=== PATIENT | male | born 1975 | race Caucasian/White ===

== ENCOUNTER → 2021-01-31 09:47 | Outpatient (REF) | payer BC, SELFPAY ==
--- NOTE | 2021-01-31 09:30 | CA_ITS ---
Acquisition Time: 2021-01-31 10:29:09 Total Exercise Time: 00:06:55 Test Indications: SOB ON EXERTION Medications: Protocol: MONICA Max HR: 134 BPM 77% of Pred: 173 BPM Max BP: 196/098 mmHG Max Work Load: 8.3 METS Exercise stress test with exercise 6 min 55 sec of Monica protocol, with moderate shortness of breath and request to stop exercise, no chest discomfort, with isolated PVC, then increased frequency of PVCs near peak exercise with multifocal ventricular cuplets, with hypertensive response to exercise with max BP 196/ 98, with nondiagnostic EKG changes for ischemia due to suboptimal heart rate, achieving 77% MPHR. In recovery his shortness of breath resolved and BP returned to baseline. Test reviewed with Dr Batres. Call placed to Dr Matias office. Report given with recommendation for pharmacological nuclear stress test to further evaluation for ischemia. Referred By: Joss Lester Overread By: BG ALCANTARA
== END ==
LOC: HO.CARD 09:47
PROVIDERS: Visit Provider Family Medicine
DX: R06.09 Other forms of dyspnea (principal)
CPT/HCPCS: 93017

== ENCOUNTER → 2021-03-10 08:11 | Outpatient (REF) | payer BC, SELFPAY ==
--- NOTE | ~2021-03-10 | NM_ITS ---
Myocardial perfusion study Indication: Abnormal stress test evaluate for myocardial ischemia Technique: The patient was brought in for a Lexiscan perfusion study on 03/10/2021. Patient performed low-level exercise and was injected 0.4 mg of Lexiscan intravenously. Within a minute of injection, 40 mCi of sestamibi was given intravenously. Images were obtained using the SPECT gamma camera interlaced with the gating device. Images were obtained in supine position. Resting perfusion study was performed on 03/11/2021. Patient was administered 40 mCi of sestamibi intravenously at rest. Images were then obtained in supine position. Images obtained with and without CT attenuation. Total DLP 116 mGy-cm. Images were processed with the software and compared side to side in short axis, horizontal long axis and vertical long axis views. Findings: The stress perfusion study showed nonattenuated images show mildly to moderately reduced uptake in the septum, inferior and apical wall of the LV myocardium. Attenuated corrected images show mildly reduced uptake in the septum and apex of the LV myocardium The gated study shows low normal LV systolic function with calculated LVEF of 54%. LV cavity is normal in size. The gated study shows normal systolic wall thickening and contraction of segments. Resting study shows no change in perfusion pattern compared to stress perfusion study. Gating at rest reveals normal cyst colic wall motion with ejection fraction at 52%. The findings are consistent with no clear reversible defect suggestive of ischemia. Fixed defect most likely due to soft tissue attenuation. NM/NM bang perf SPECT rest & str Impression: 1. Myocardial perfusion imaging study shows likely normal myocardial perfusion 2. Gated LVEF is 54% 3. Transient ischemic dilatation not present EKG is nondiagnostic for ischemia
--- NOTE | 2021-03-10 08:00 | CA_ITS ---
Acquisition Time: 2021-03-10 09:04:26 Total Exercise Time: 00:02:00 Test Indications: cp, abn ett Medications: see chart Protocol: LEXISCAN Max HR: 095 BPM 54% of Pred: 173 BPM Max BP: 130/082 mmHG Max Work Load: 1.6 METS Pharmacological stress test with Lexiscan injection, while walking on treadmill without anginal symptoms, without arrythmia, with normotensive response to injection, with nondiagnostic EKG for ischemia. In recovery he reported feeling shaky and was treated with Aminophylline 75mg IVP to reverse Lexiscan with resolution of symptom. Nuclear images pending. Test reviewed with Dr Batres. Referred By: Joss Lester Overread By: BG ALCANTARA
== END ==
LOC: HO.CARD 08:11
PROVIDERS: Visit Provider Family Medicine
DX: R94.39 Abnormal result of other cardiovascular function study (principal)
CPT/HCPCS: 78452; 93017; A9500; J0280; J2785

== ENCOUNTER 2021-08-14 13:22 | Emergency (ER) | payer BC, SELFPAY ==
--- NOTE | ~2021-08-14 | CT_ITS ---
EXAMINATION: CT ANGIOGRAM OF THE CHEST WITH AND WITHOUT CONTRAST (CT PULMONARY ANGIOGRAM FOR PE) CLINICAL INFORMATION: Reason for Exam sob, hypoxia COMPARISON: None TECHNIQUE: Prior to contrast administration, noncontrast localization images were obtained. Subsequently, multidetector volumetric imaging was performed from the thoracic inlet to below the diaphragms following the administration of 65 mL Omnipaque 350 intravenous contrast. No contrast reaction reported Sagittal, coronal, and MIP oblique sagittal reformatted images were obtained on the CT workstation, uploaded to PACS, and reviewed. This CT examination was performed using dose optimization techniques as appropriate, variously including the following: *Automated exposure control *Adjustment of mA and/or kV according to patient size (this includes techniques or standardized protocols for targeted exams where dose is matched to indication/reason for exam; i.e. extremities or head) *Use of iterative reconstruction technique Total exam dose-length product 464 mGy-cm FINDINGS: QUALITY OF STUDY/CONTRAST BOLUS: Satisfactory. PULMONARY ARTERIES: No central or segmental pulmonary emboli. THORACIC AORTA: No aneurysm or dissection. LUNG: There is focal groundglass attenuation at the medial aspect of the right lung apex which extends from the pleural surface and likely corresponds to pleural parenchymal scarring. There is an angular, peripheral 3 mm nodule in the right middle lobe anterolaterally on image 290/585 of series 7. A few additional 2 mm nodules are noted. No consolidation. Central airways are clear. There is a small bulla in the medial aspect of the left lung base PLEURA: No pleural effusion or pneumothorax. MEDIASTINUM: There is an enlarged right hilar lymph node smaller subcentimeter hilar lymph nodes are present in the right suprahilar and infrahilar regions. No definite left-sided hilar adenopathy. There is a 1.2 cm precarinal lymph node which is borderline enlarged. No evidence of septal bowing or right heart strain. CHEST WALL/AXILLA: No axillary or internal mammary lymphadenopathy. OSSEOUS STRUCTURES: No acute or suspicious osseous abnormality. UPPER ABDOMEN: Unremarkable. No reflux of contrast into the hepatic veins to suggest elevated right heart pressures. CT/CT angio chest PE protocol IMPRESSION: 1. Subtle groundglass attenuation in the right lung apex is favored to correspond to pleural parenchymal scarring. No definite pulmonary consolidation. An early infectious process is less likely in the absence of additional foci . 2. Borderline enlarged mediastinal and right hilar lymph nodes. 3. A 3 mm nodule in the right middle lobe. According to the UPDATED 2017 Fleischner Society recommendations, the advised follow-up imaging for solid nodules < 6 mm is: LOW RISK PATIENT: No routine follow-up. HIGH RISK PATIENT: Optional CT at 12 months. VTE: negative
--- NOTE | ~2021-08-14 | XR_ITS ---
EXAMINATION: XR CHEST CLINICAL INFORMATION: Question Covid. Abnormal chest x-ray. Urgent care COMPARISON: August 31, 2018 TECHNIQUE: 2 views of the chest were obtained. FINDINGS: No significant abnormality is noted involving the heart, lungs, mediastinum, bony thorax or soft tissues. XR/XR chest 2V IMPRESSION: No acute disease.
[2021-08-14 13:30] VITALS: BP 154/69; PULSE 75; RESP 20; TEMP 37.4; O2SAT 92; BMI 32.1
--- NOTE | 2021-08-14 18:21 | ED.URI ---
HPI - URI/Sore Throat General Chief Complaint: Upper Respiratory Symptoms Stated Complaint: low o2 Source: patient Mode of arrival: ambulatory Limitations: no limitations History of Present Illness HPI Narrative: 45-year-old male presents from Urgent Care for hypoxia at 88% on room air with positive COVID exposures. Also reports fatigue, shortness of breath, and cough. MD elicited complaint: cough and nasal congestion Onset (ago): day(s) Consistency: constant Severity: moderate Description of mucous: clear Able to tolerate fluids by mouth: Yes Exacerbating factors: exertion Relieving factors: nothing Context: sick contacts Associated symptoms: fever, chills, myalgias, headache, nasal congestion, sore throat, cough and shortness of breath Treatments prior to arrival: none Related Data Previous Rx's Medication Instructions Recorded albuterol sulfate 90 mcg/actuation 2 inh INHALATION Q4-6H PRN #1 ea 08/14/21 breath activated powder inhaler dexamethasone 6 mg tablet 6 mg PO DAILY #5 tab 08/14/21 Allergies Allergy/AdvReac Type Severity Reaction Status Date / Time No Known Allergies Allergy Unverified 05/02/20 15:05 [No Known Allergies*] Review of Systems Review of Systems: Constitutional: positive Fever, positive Chills, positive fatigue, positive Malaise ENT/Mouth: positive sore throat, positive runny nose Eyes: No Discharge Cardiovascular: No Chest Pain, No SOB Respiratory: Positive Cough, No Sputum, No Wheezing, No Smoke Exposure, No Dyspnea Gastrointestinal: No Nausea, No Vomiting, No Diarrhea Genitourinary: no irregular bleeding, No Dysuria, No Urinary Frequency, No Hematuria, No Urinary Incontinence, No Urgency, No Flank Pain, Musculoskeletal: positive Myalgia Skin: No rash Neuro: Positive Headache Yes all other systems are reviewed and are negative [facility] Past Medical History Attestation statement: The following information was validated with the patient. Source: old records reviewed Medical History ADHD Depression Sleep apnea Social History Social History Alcohol intake: current Alcohol intake frequency: holidays/special occasions only Patient Tobacco Use Status: Never used Tobacco Use of substances other than those prescribed or required for medical reasons: No Advance Directives: No Advance Directives Information Provided: No Physical Exam Vital Signs: Vital Signs: Last Vital Signs Temp 99.4 F 08/14/21 13:30 Pulse 96 08/14/21 21:00 Resp 16 08/14/21 21:00 BP 154/69 H 08/14/21 13:30 Pulse Ox 95 08/14/21 21:00 Oxygen Flow Rate 2 08/14/21 21:00 BMI result Body Mass Index 32.1 Appearance: Alert. Oriented X3. No acute distress. Eyes: Pupils equal, round and reactive to light. EOMI. Sclera nonicteric. ENT: Pharynx normal. Nasal congestion. Neck: Normal inspection. Neck supple. No nuchal rigidity. CVS: Normal heart rate and rhythm. Pulses normal. Respiratory: No respiratory distress. Inspiratory and expiratory wheezing throughout. No chest wall tenderness to palpation. Abdomen: Soft and nontender. Skin: Skin warm and dry. Normal skin color. Normal skin turgor. Extremities: No lower extremity edema. Gait well-balanced well coordinated. Neuro: No motor deficit. No sensory deficit. Cranial nerves 2-12 intact. Course Course Course Narrative: 45-year-old male presents with hypoxia, nasal congestion, fatigue and shortness of breath. Presents from Urgent Care for O2 sat 88% on room air. Family members are positive for COVID-19, his COVID-19 rapid test was negative. Will order lab values, ambulatory pulse ox. CT scan chest. 7:24 p.m. 20 gauge ID to the right AC started by this SLIDE FASTENER REPAIRER. Labs obtained by this SLIDE FASTENER REPAIRER. CT PE study is negative. Discussion with patient regarding plan to discharge home as patient does not want to be admitted to the hospital. While his O2 sat was reported to be 88 89% while at Urgent Care, his oxygen saturation has stayed at 92% while in the emergency department. He does understand that he must take precautions, and that if this shortness of breath increases that he must return to the emergency department. I provided dexamethasone and albuterol inhaler at this time. No antibiotics as he does not have any focal infiltrates consistent with a possible bacterial pneumonia at this time. Patient does understand and agrees with this plan. MDM - URI/Sore Throat MDM Narrative Medical decision making narrative: PE Differential Diagnosis Differential diagnosis: Likely upper respiratory infection, viral infection, bronchitis, influenza and pharyngitis Medical Records Attestation: I reviewed the patient's medical records. Lab Data Attestation: I reviewed the patient's lab results. Result diagrams: 08/14/21 19:22 08/14/21 20:14 Labs: Lab Results 08/14/21 08/14/21 08/14/21 Range/Units 19:00 19:22 19:22 WBC 5.8 (4.8-10.8) X10*3/uL RBC 4.78 (4.60-5.80) X10*6/uL Hgb 13.8 L (14.0-18.0) g/dl Hct 42.1 (42.0-52.0) % MCV 88.1 (80.0-98.0) fL MCH 28.9 (27.0-33.0) pg MCHC 32.8 (31.0-36.0) g/dl RDW 12.5 (11.0-16.0) % Plt Count 182 (160-400) X10*3/uL MPV 9.4 (9.4-12.4) fL Immature Gran % (Auto) 0.3 (0.0-0.4) % Neut % (Auto) 72.9 (45-73) % Lymph % (Auto) 6.6 L (20-40) % [place] % (Auto) 10.5 (2-11) % Eos % (Auto) 9.0 H (0-4) % Baso % (Auto) 0.7 (0-2) % Lymph # (Auto) 0.4 L (1.2-4.9) X10*3/uL [place] # (Auto) 0.6 (0.1-1.2) X10*3/uL Eos # (Auto) 0.5 H (0.0-0.4) X10*3/uL Baso # (Auto) 0.0 (0.0-0.2) X10*3/uL Abs Immat Gran (auto) 0.02 (0.00-0.03) X10*3/uL Absolute Neuts (auto) 4.2 (2.0-8.3) x10*3/uL Absolute Nucleated RBC 0.000 (0.0-0.012) X10*3/uL Nucleated RBC % (auto) 0.0 (0.0-0.2) /100WBC Sodium (135-145) mmol/L Potassium (3.3-5.1) mmol/L Chloride (96-108) mmol/L Carbon Dioxide (22-29) mmol/L Anion Gap (12-20) BUN (9-16) mg/dL Creatinine (0.5-1.4) mg/dL Estim Creat Clear Calc Estimated GFR Random Glucose (60-115) mg/dL Calcium (8.4-10.2) mg/dL Troponin I High Sens < 3.5 (<3.5-35.0) ng/L Influenza Type A (PCR) NEGATIVE (Negative) Influenza Type B (PCR) NEGATIVE (Negative) RSV RNA Qual (PCR) NEGATIVE (Negative) SARS-CoV-2 RNA (RT-PCR) POSITIVE A (Negative) 08/14/21 Range/Units 20:14 WBC (4.8-10.8) X10*3/uL RBC (4.60-5.80) X10*6/uL Hgb (14.0-18.0) g/dl Hct (42.0-52.0) % MCV (80.0-98.0) fL MCH (27.0-33.0) pg MCHC (31.0-36.0) g/dl RDW (11.0-16.0) % Plt Count (160-400) X10*3/uL MPV (9.4-12.4) fL Immature Gran % (Auto) (0.0-0.4) % Neut % (Auto) (45-73) % Lymph % (Auto) (20-40) % [place] % (Auto) (2-11) % Eos % (Auto) (0-4) % Baso % (Auto) (0-2) % Lymph # (Auto) (1.2-4.9) X10*3/uL [place] # (Auto) (0.1-1.2) X10*3/uL Eos # (Auto) (0.0-0.4) X10*3/uL Baso # (Auto) (0.0-0.2) X10*3/uL Abs Immat Gran (auto) (0.00-0.03) X10*3/uL Absolute Neuts (auto) (2.0-8.3) x10*3/uL Absolute Nucleated RBC (0.0-0.012) X10*3/uL Nucleated RBC % (auto) (0.0-0.2) /100WBC Sodium 135 (135-145) mmol/L Potassium 5.0 (3.3-5.1) mmol/L Chloride 99 (96-108) mmol/L Carbon Dioxide 29 (22-29) mmol/L Anion Gap 12 (12-20) BUN 12 (9-16) mg/dL Creatinine 0.69 (0.5-1.4) mg/dL Estim Creat Clear Calc 177.2 Estimated GFR > 60 Random Glucose 94 (60-115) mg/dL Calcium 9.0 (8.4-10.2) mg/dL Troponin I High Sens (<3.5-35.0) ng/L Influenza Type A (PCR) (Negative) Influenza Type B (PCR) (Negative) RSV RNA Qual (PCR) (Negative) SARS-CoV-2 RNA (RT-PCR) (Negative) Imaging Data Chest x-ray: Attestation: I personally reviewed and interpreted this imaging study as follows: Radiologist's impression: EXAMINATION: XR CHEST CLINICAL INFORMATION: Question Covid. Abnormal chest x-ray. Urgent care COMPARISON: August 31, 2018 TECHNIQUE: 2 views of the chest were obtained. FINDINGS: No significant abnormality is noted involving the heart, lungs, mediastinum, bony thorax or soft tissues. XR/XR chest 2V IMPRESSION: No acute disease. CT PE study: Attestation: I personally reviewed and interpreted this imaging study as follows: Radiologist's impression: EXAMINATION: CT ANGIOGRAM OF THE CHEST WITH AND WITHOUT CONTRAST (CT PULMONARY ANGIOGRAM FOR PE) CLINICAL INFORMATION: Reason for Exam sob, hypoxia COMPARISON: None? TECHNIQUE: Prior to contrast administration, noncontrast localization images were obtained. ? Subsequently, multidetector volumetric imaging was performed from the thoracic inlet to below the diaphragms following the administration of 65 mL Omnipaque 350 intravenous contrast. No contrast reaction reported Sagittal, coronal, and MIP oblique sagittal reformatted images were obtained on the CT workstation, uploaded to PACS, and reviewed. This CT examination was performed using dose optimization techniques as appropriate, variously including the following: *Automated exposure control *Adjustment of mA and/or kV according to patient size (this includes techniques or standardized protocols for targeted exams where dose is matched to indication/reason for exam; i.e. extremities or head) *Use of iterative reconstruction technique Total exam dose-length product 464 mGy-cm FINDINGS: QUALITY OF STUDY/CONTRAST BOLUS: Satisfactory. PULMONARY ARTERIES: No central or segmental pulmonary emboli.? THORACIC AORTA: No aneurysm or dissection. LUNG: There is focal groundglass attenuation at the medial aspect of the right lung apex which extends from the pleural surface and likely corresponds to pleural parenchymal scarring. There is an angular, peripheral 3 mm nodule in the right middle lobe anterolaterally on image 290/585 of series 7. A few additional 2 mm nodules are noted. No consolidation. Central airways are clear. There is a small bulla in the medial aspect of the left lung base PLEURA: No pleural effusion or pneumothorax. MEDIASTINUM: There is an enlarged right hilar lymph node smaller subcentimeter hilar lymph nodes are present in the right suprahilar and infrahilar regions. No definite left-sided hilar adenopathy. There is a 1.2 cm precarinal lymph node which is borderline enlarged.? No evidence of septal bowing or right heart strain. CHEST WALL/AXILLA: No axillary or internal mammary lymphadenopathy. OSSEOUS STRUCTURES: No acute or suspicious osseous abnormality.? UPPER ABDOMEN: Unremarkable.? No reflux of contrast into the hepatic veins to suggest elevated right heart pressures. CT/CT angio chest PE protocol IMPRESSION: 1. Subtle groundglass attenuation in the right lung apex is favored to correspond to pleural parenchymal scarring. No definite pulmonary consolidation. An early infectious process is less likely in the absence of additional foci . 2. Borderline enlarged mediastinal and right hilar lymph nodes. 3. A 3 mm nodule in the right middle lobe. According to the UPDATED 2017 Fleischner Society recommendations, the advised follow-up imaging for solid nodules < 6 mm is: ?? LOW RISK PATIENT: No routine follow-up. ?? HIGH RISK PATIENT: Optional CT at 12 months. ? ECG Data Attestation: I personally reviewed and interpreted this ECG as follows: ECG interpretation date: 08/14/21 ECG interpretation time: 19:10 Interpretation: Vent. Rate : 070 BPM ? ? Atrial Rate : 070 BPM ?? P-R Int : 148 ms? QRS Dur : 078 ms ? ? QT Int : 388 ms ? ? ? P-R-T Axes : 020 051 059 degrees ?? QTc Int : 419 ms ? Normal sinus rhythm Septal infarct (cited on or before 14-AUG-2021) Abnormal ECG When compared with ECG of 31-AUG-2018 15:22, No significant change was found Discharge Plan Discharge Clinical Impression: COVID-19 Patient Disposition: Home, Self-Care Instructions: Covid-19 Viral Syndrome and Novel Coronavirus (ED) Hey/Ath, COVID-19 (Coronavirus Disease 2019) (ED) Additional Instructions: You were evaluated for upper respiratory symptoms. You tested positive for COVID-19. I discussed this plan in detail with you, while you were at the urgent care your oxygenation saturation was 89%. During or stay in the emergency department your oxygenation saturation was 92% and above. Please use dexamethasone 6 mg daily for the next 5 days. Use albuterol inhaler 2 puffs every 4-6 hours as needed for shortness of breath. CT scan PE study was negative for blood clots, does not show any pockets of fluid consistent with COVID pneumonia. This time we will not be giving you antibiotics as you have neither viral nor bacterial pneumonia. Please follow-up with primary care physician. Symptoms worsen please return to the emergency department. Alternate Tylenol 650 mg every 6 hours and Motrin 600 mg every 6 hours as needed for pain, muscle aches and fever control. Thank you for choosing this emergency department for evaluation. Please follow-up with primary care physician as needed. Return to the emergency department for any new, concerning, or worsening symptoms. Prescriptions: New albuterol sulfate 90 mcg/actuation aerosol powdr breath activated 2 inh inhalation Q4-6H PRN (Reason: shortness of breath or wheezing) Qty: 1 RF: 0 dexamethasone 6 mg tablet 6 mg PO DAILY Qty: 5 RF: 0 Stand Alone Forms: Work/School Release Interventions: ED Discharge Assessment Last Done: 08/14/21 22:57 Discharge Date/Time: 08/14/21 23:06
--- NOTE | 2021-08-14 18:28 | ECG_ITS ---
Test Reason : UPPER RESP Blood Pressure : / mmHG Vent. Rate : 070 BPM Atrial Rate : 070 BPM P-R Int : 148 ms QRS Dur : 078 ms QT Int : 388 ms P-R-T Axes : 020 051 059 degrees QTc Int : 419 ms Normal sinus rhythm Septal infarct (cited on or before 14-AUG-2021) Abnormal ECG When compared with ECG of 31-AUG-2018 15:22, No significant change was found Referred By: Michelle Lima Electronically Signed By:Justin Benavides
[2021-08-14 19:25] LABS: MANUAL DIFF FLAG NO
[2021-08-14 19:26] LABS: Basophils Percent Auto 0.7 % (0-2); Eosinophils Absolute Auto 0.5 X10*3/uL (0.0-0.4); Hematocrit 42.1 % (42.0-52.0); Hemoglobin 13.8 g/dl (14.0-18.0); Imm Gran Abs Auto 0.02 X10*3/uL (0.00-0.03); Imm Gran Pct Auto 0.3 % (0.0-0.4); Lymphocytes Absolute Auto 0.4 X10*3/uL (1.2-4.9); Lymphocytes Percent Auto 6.6 % (20-40); Mean Corpuscular HGB Conc 32.8 g/dl (31.0-36.0); Mean Corpuscular Hemoglobin 28.9 pg (27.0-33.0); Mean Corpuscular Volume 88.1 fL (80.0-98.0); Mean Platelet Volume 9.4 fL (9.4-12.4); Monocytes Absolute Auto 0.6 X10*3/uL (0.1-1.2); Monocytes Percent Auto 10.5 % (2-11); Neutrophils Absolute Auto 4.2 x10*3/uL (2.0-8.3); Neutrophils Percent Auto 72.9 % (45-73); Platelet Count 182 X10*3/uL (160-400); Red Blood Count 4.78 X10*6/uL (4.60-5.80); Red Cell Distribution Width 12.5 % (11.0-16.0); White Blood Count 5.8 X10*3/uL (4.8-10.8)
[2021-08-14 19:49] LABS: Troponin-I High Sensitivity < 3.5 ng/L (<3.5-35.0)
[2021-08-14 20:44] LABS: Anion Gap 12 (12-20); Blood Urea Nitrogen 12 mg/dL (9-16); Carbon Dioxide 29 mmol/L (22-29); Chloride 99 mmol/L (96-108); Creatinine Clr Calc Pharmacy 177.2; Estimated Glomerular Filt Rate > 60; Glucose Random 94 mg/dL (60-115); Sodium 135 mmol/L (135-145)
[2021-08-14 21:00] VITALS: PULSE 96; RESP 16; O2SAT 95
[2021-08-14] MEDS: iohexoL 350 MG/ML 100 ML INFUS..BTL 65 ML IV (21:13)
[2021-08-14 22:11] LABS: Influenza A PCR NEGATIVE (Negative); Influenza B PCR NEGATIVE (Negative); Resp Syncy Virus RNA Qual PCR NEGATIVE (Negative); SARS COV2 PCR INHOUSE POSITIVE (Negative)
== END 2021-08-14 23:06 | disposition home or self-care (01) ==
PROVIDERS: Nurse Practitioner Family; Emergency Provider Emergency Medicine Emergency Medical Services; PCP Family Medicine
DX: U07.1 COVID-19 (principal); R50.9 Fever, unspecified; M79.10 Myalgia, unspecified site; R51.9 Headache, unspecified; R05.9 Cough, unspecified; Z79.899 Other long term (current) drug therapy
CPT/HCPCS: 0241U; 36415; 71046; 71275; 80048; 84484; 85025; 93005; 99284; Q9967

== ENCOUNTER → 2024-09-12 12:57 | Outpatient (REF) | payer BC, SELFPAY ==
--- NOTE | 2024-09-12 13:00 | CA_ITS ---
Transthoracic Echocardiogram Patient (Last, First, Middle): Sung Acuna, Gender: Male Date of : 1975 Age: 48 Procedure Date: 09/12/2024 Procedure Type: Transthoracic Echocardiogram Location: OP Height: 187.96 cm Weight: 129.28 kg BSA: 2.53 m2 Heart Rate: bpm BP: 130 / 90 mmHg Assistant Boiler Operator: Referring MD: Joss Izquierdo MD Symptoms: R06.00 [id number] Study Quality: Technically Difficult/Contrast used ECG Rhythm: Sinus Conclusions: - The left ventricular systolic function is normal. The visually estimated ejection fraction is between 55-60%. - No obvious valvular pathology seen on this study. Findings Left Ventricle Normal left ventricular cavity size. The left ventricular systolic function is normal. The visually estimated ejection fraction is between 55-60%. There is no evidence of regional wall motion abnormalities. Diastolic function is normal for age. Possible veri-il-gmyoqfks concentric left ventricular hypertrophy. Right Ventricle Normal right ventricular cavity size and systolic function. Atria Both atria are normal in size. Aortic Valve The aortic valve was not well visualized. There is no aortic valve stenosis. There is no aortic valve regurgitation. Mitral Valve The mitral valve appears normal. There is no mitral valve regurgitation. There is no mitral valve stenosis. Pulmonic Valve The pulmonic valve is likely normal. Tricuspid Valve There is trace tricuspid valve regurgitation. There is no evidence of pulmonary hypertension. Great Vessels The asc aorta is normal in size. Venous The inferior vena cava is normal in size and collapses greater than 50% with inspiration. Pericardium/Pleural There is no evidence of pericardial effusion. Prior Study Comparison No prior study available for comparison. Recommendations, Care & Conclusions No obvious valvular pathology seen on this study. Measurements 2D Linear Measurements IVSd: 1.33 0.6-0.9/0.6-1.0 cm LVIDd: 4.27 3.9-5.3/4.2-5.9 cm LVIDd Index: 1.69 2.4-3.2/2.2-3.1 cm/m2 LVIDs: 2.73 2.0-3.6 cm LVPWd: 1.22 0.7-1.1 cm Ao Root: 3.90 2.1-3.5 cm LA Diam: 3.60 2.7-3.8/3.0-4.0 cm LAIDs Index: 1.42 1.5-2.3 cm/m2 LV Mass: 248.93 67-162/88-224 g LV Mass Index: 98.39 43-95/49-115 g/m2 LVOT Diam: 2.70 3.0+(-)1.3 cm 2D Systolic Function EF 4C: 61.90 >55% EF 2C: 69.10 >55% EF BiP: 66.30 >55% Mitral Valve MV Pk E: 0.55 MV PK A: 0.59 MV Decel Time: 173.00 E/A: 0.90 E'Lateral: 9.25 E'Medial: 7.40 E/E' Med: 7.40 E/E' Lat: 5.90 PHT: 51.00 MVA PHT: 4.31 Decel Dixon: 3.18 Aortic Valve AoV Pk Too: 1.10 AoV Mn Too: 0.71 AoV VTI: 0.22 AoV Pk Grad: 5.00 Aov Mn Grad: 2.00 EDGAR Cont.VTI: 4.65 LVOT LVOT Pk Too: 0.84 LVOT Mn Too: 0.59 LVOT VTI: 0.18 LVOT Pk Grad: 3.00 LVOT Mn Grad: 2.00 LVOT Diam: 2.70 LVOT Area: 5.73 Diastolic Function MV Pk E: 0.55 MV Pk A: 0.59 E/A: 0.90 E'Medial: 7.40 E/E' Med: 7.40 E' Laterial: 9.25 E/E' Lat: 5.90 Right Ventricle TAPSE (mm): 26.00 TVS' Too: 13.00 Tricuspid Valve TR Pk Too: 1.65 TR Pk Grad: 11.00 RA Press: 3.00 RVSP: 14.00 Great Vessels Aorta Ao Root-2D: 3.90 2.0-3.7 cm Ao Asc: 3.50 2.1-3.4 cm Pulmonary Valve PV Pk Too: 0.98 Peak PV Grad: 4.00 Updated in Other Vendor System with Status of Final Gael Batres MD electronically signed on 09/13/2024 11:10:27 AM with status of Final
== END ==
LOC: HO.CARD 12:57
PROVIDERS: PCP Family Medicine; Visit Provider Family Medicine
DX: R06.00 Dyspnea, unspecified (principal)
CPT/HCPCS: 93306; Q9957

== ENCOUNTER 2024-09-27 07:54 | Outpatient (REF) | payer BC, SELFPAY ==
--- NOTE | 2024-09-27 | PFT_ITS ---
Indication: Dyspnea Spirometry [FEV1 to FVC 0.6%; FEV1 2.2 L; FVC 4.86 L. no significant response to bronchodilators noted.] Lung Volumes [Held capacity 80% predicted; residual volume 106% predicted; expiratory reserve volume 61% predicted] Diffusion Capacity [DLCO 109% predicted] Comparisons [none] Interpretation [There is an obstructive ventilatory defect consistent with moderate to severe COPD. No significant response to bronchodilators noted. Lung volumes and diffusing capacity within normal limits. Clinical correlation warranted.] MTDD
== END 2024-09-27 07:55 | disposition home or self-care (01) ==
LOC: HO.RESP 07:54
PROVIDERS: PCP Family Medicine; Visit Provider Family Medicine
DX: R09.02 Hypoxemia (principal)
CPT/HCPCS: 94010; 94640; 94727; 94729

== ENCOUNTER → 2024-09-27 07:58 | Outpatient (BNV) | payer BC, SELFPAY | PROVIDERS: PCP Family Medicine; Visit Provider Hospitalist | DX: R06.09 Other forms of dyspnea (principal) | CPT/HCPCS: 94060; 94727; 94729 ==

== ENCOUNTER 2025-07-20 09:49 | Outpatient (REF) | payer BC, SELFPAY ==
--- NOTE | ~2025-07-20 | XR_ITS ---
EXAMINATION: XR CHEST 2 VIEWS HISTORY: COUGH, WHEEZING, HYPOXIA, GREEN SPUTUM COMPARISON: Comparison is made with the prior examination dated 08/14/2021. FINDINGS: PA and lateral views of the chest are submitted. There are increased interstitial markings bilaterally which may represent viral versus reactive airways disease. A more focal airspace opacity in the right upper lobe is consistent with early pneumonia. There is no pleural effusion, pneumothorax, or pulmonary vascular congestion. The heart is normal in size. The bones are intact. XR/XR chest 2V IMPRESSION: Findings suggestive of viral versus reactive airways disease with a more focal opacity in the right upper lobe, compatible with early pneumonia. Follow-up is recommended to document resolution. Electronically signed by: Wayne Clarke MD 07/20/2025 10:11 AM [facility]
== END 2025-07-20 09:50 | disposition home or self-care (01) ==
LOC: HO.XRAY 09:49
PROVIDERS: PCP Family Medicine; Visit Provider Nurse Practitioner
DX: R06.2 Wheezing (principal); R05.9 Cough, unspecified; R09.02 Hypoxemia; R09.3 Abnormal sputum
CPT/HCPCS: 71046

== ENCOUNTER → 2025-07-20 10:02 | Outpatient (BNV) | payer BC, SELFPAY | PROVIDERS: PCP Family Medicine; Visit Provider Radiology Diagnostic Radiology | DX: R05.9 Cough, unspecified (principal); R06.2 Wheezing; R09.02 Hypoxemia; R09.3 Abnormal sputum | CPT/HCPCS: 71046 ==